=== PATIENT | male | born 1990 | race Caucasian/White ===

== ENCOUNTER 2017-09-26 22:36 | Emergency (ER) | payer MEDICAID | END 2017-09-26 23:45 | disposition home or self-care (01) | LOC: D.ER 22:36 | DX: S51.812A Laceration without foreign body of left forearm, initial encounter (principal); W26.9XXA Contact with unspecified sharp object(s), initial encounter; Y93.89 Activity, other specified; Y92.019 Unspecified place in single-family (private) house as the place of occurrence of the external cause; F17.200 Nicotine dependence, unspecified, uncomplicated ==

== ENCOUNTER 2017-10-10 00:19 | Emergency (ER) | payer SELFPAY | END 2017-10-10 02:34 | disposition home or self-care (01) | LOC: D.ER 00:19 | DX: S41.112D Laceration without foreign body of left upper arm, subsequent encounter (principal); X58.XXXD Exposure to other specified factors, subsequent encounter; Z48.02 Encounter for removal of sutures ==

== ENCOUNTER 2018-07-10 11:35 | Emergency (ER) | payer MEDICAID ==
[~2018-07-10] VITALS: Ht 185.4 cm; Wt 70.5 kg
[2018-07-10 11:41] VITALS: Ht 185.4 cm; Wt 70.5 kg
[2018-07-10] MEDS ORDERED: ZOLOFT50 MG PO (11:43)
[2018-07-10] MEDS ORDERED: BUSPAR 15 MG TA15 MG PO (11:44)
[2018-07-10] MEDS ORDERED: ROBAXIN500 MG (11:44)
[2018-07-10] MEDS ORDERED: ZOVIRAX800 MG PO (12:21)
[2018-07-10] MEDS ORDERED: BACTRIM 400-801 TAB PO (12:21)
[2018-07-10 12:43] VITALS: BP 148/76
== END 2018-07-10 12:44 | disposition home or self-care (01) ==
LOC: D.ER 11:35
DX: L03.221 Cellulitis of neck (principal); B00.1 Herpesviral vesicular dermatitis